=== PATIENT | male | born 1930 | race Caucasian/White ===

== ENCOUNTER → 2018-06-07 | Outpatient (CLI) | payer MEDICARE, OTHER ==
--- NOTE | 2018-06-07 18:27 | Diagnostic Imaging Report ---
PROCEDURE: X-RAY MODIFIED BARIUM SWALLOW COMPARISON: None. INDICATION: Dysphagia DISCUSSION: Fluoroscopic examination was performed in conjunction with speech pathology during swallowing a variety of thin and thick liquid consistencies. No penetration or aspiration is demonstrated. Trace vallecular and base of tongue residue is noted. CONCLUSION: No penetration or aspiration is demonstrated. Please refer to the speech pathology report for further details. Signed by: Dr. Abdirizak Sainz MD on 06/07/2018 6:23 PM
== END ==
LOC: DX 11:47
PROVIDERS: ATTEND Otolaryngology
DX: R13.13 Dysphagia, pharyngeal phase (principal)
CPT/HCPCS: 74230; 92611; G8996; G8997; G8998